=== PATIENT | female | born 1970 | race Caucasian/White ===

== ENCOUNTER → 2016-11-08 | Outpatient (CLI) | payer OTHER ==
--- NOTE | 2016-11-08 15:23 | XR ---
Lumbosacral spine HISTORY: Low back pain, M [age], radiates down right leg 5 views of the lumbosacral spine There is no spondylolysis or spondylolisthesis. Lumbar vertebral bodies show preserved height and bon e mineralization. Spondylosis present at the thoracic lumbar junction. Loss of disc height present at L3-4, L5-S1. IMPRESSION: Degenerative disc disease.
== END | disposition home or self-care (01) ==
LOC: LABWHC1 12:14
PROVIDERS: ATTEND Internal Medicine Critical Care Medicine
DX: M51.37 Other intervertebral disc degeneration, lumbosacral region (principal); R59.0 Localized enlarged lymph nodes
CPT/HCPCS: 36415; 72110; 84439; 84443

== ENCOUNTER → 2016-12-28 | Outpatient (CLI) | payer OTHER ==
--- NOTE | 2016-12-28 18:55 | US ---
EXAMINATION TYPE: US thyroid st tissue head/neck DATE OF EXAM: 12/28/2016 COMPARISON: NONE CLINICAL HISTORY: E04.9 goiter. felt enlarged gland GLAND SIZE: Right Lobe: 3.7 x 1.0 x 1.3 cm Overall Parenchyma: homogenous Left Lobe: 3.6 x 1.0 x 1.3 cm Overall Parenchyma: homogeneous Isthmus Thickness: 0.2 cm NODULES RIGHT: # of nodules measured on right: 1 1. 0.5 X 0.5 x 0.5 cm isoechoic solid nodule at the mid pole with poorly defined margins; . This n odule is wider than tall and shows intranodular vascularity. Prior size: no prior LEFT: # of nodules measured on left: 0 ISTHMUS: # of nodules measured in the isthmus: 0 Bilateral neck scanned, no evidence of lymphadenopathy. ill defined nodule IMPRESSION: 5 mm hypoechoic solid nodule in the right thyroid lobe. Normal thyroid gland size. No dominant thyroi d mass. I have a low suspicion of malignancy.
== END | disposition home or self-care (01) ==
LOC: RADUSWWP 17:03
PROVIDERS: ATTEND Family Medicine
DX: E04.1 Nontoxic single thyroid nodule (principal)
CPT/HCPCS: 76536

== ENCOUNTER → 2016-12-30 | Outpatient (CLI) | payer OTHER ==
[2016-12-30 09:47] LABS: Basophils % (A) 0 %; CH 31.1; CHCM 33.6; Eosinophils # (A) 0.2 k/uL (0-0.7); Eosinophils % (A) 3 %; HCT 37.1 % (34.0-46.0); HDW 2.15; HGB 12.3 gm/dL (11.4-16.0); Luc # (Auto) 0.14; Luc % (Auto) 2; Lymphocytes # (A) 2.2 k/uL (1.0-4.8); Lymphocytes % (A) 28 %; MCH 30.8 pg (25.0-35.0); MCHC 33.1 g/dL (31.0-37.0); Monocytes # (A) 0.2 k/uL (0-1.0); Monocytes % (A) 3 %; Neutrophils # (A) 5.1 k/uL (1.3-7.7); Neutrophils % (A) 64 %; RBC 3.99 m/uL (3.80-5.40); RDW 14.4 % (11.5-15.5); WBC 7.9 k/uL (3.8-10.6); WBC (Perox) 8.22
[2016-12-30 10:16] LABS: ALT 21 U/L (9-52); AST 21 U/L (14-36); Alkaline Phosphatase 65 U/L (38-126); Anion Gap 10 mmol/L; Blood Urea Nitrogen 13 mg/dL (7-17); Calcium 9.5 mg/dL (8.4-10.2); Carbon Dioxide 25 mmol/L (22-30); Chloride 105 mmol/L (98-107); Cholesterol 165 mg/dL (<200); Glucose 121 mg/dL (74-99); HDL Cholesterol 71 mg/dL (40-60); Non-African American GFR(MDRD) >60 (>60 ml/min/1.73 sqM); Potassium 4.4 mmol/L (3.5-5.1); Sodium 140 mmol/L (137-145); Total Bilirubin 0.5 mg/dL (0.2-1.3); Total Protein 6.8 g/dL (6.3-8.2)
== END | disposition home or self-care (01) ==
LOC: LABWHC1 09:08
PROVIDERS: ATTEND Family Medicine
DX: Z00.01 Encounter for general adult medical examination with abnormal findings (principal); J45.30 Mild persistent asthma, uncomplicated
CPT/HCPCS: 36415; 80053; 80061; 84443; 85025

== ENCOUNTER 2017-03-06 09:50 | Emergency (ER) | payer OTHER ==
[2017-03-06] MEDS ORDERED: TOPICAL SKIN ADHESIVE 1 EACH AMP TOPICAL ONE (11:40)
[2017-03-06] MEDS ORDERED: DIPH,PERTUS(ACELL)TETVAC-LF 0.5 ML VIAL IM ONE (11:42)
--- NOTE | 2017-03-06 11:43 | ED ---
Wound/Laceration HPI - General Chief Complaint: Wound/Laceration Stated Complaint: rt thumb lac Time Seen by Provider: 03/06/17 11:37 Source: patient Mode of arrival: ambulatory Limitations: no limitations - History of Present Illness Initial Comments: Patient presents with laceration to the left thumb. She has neurovascular intact. She has no weakness. She has no loss of function. She has no lightheadedness or dizziness. - Related Data Home Medications Medication Instructions Recorded Confirmed Budesonide-Formot 160-4.5 Mcg 2 puff INHALATION RT-BID 07/18/14 02/25/17 [Symbicort 160-4.5 Mcg Inhaler] Albuterol Inhaler [Ventolin Hfa 1 - 2 puff INHALATION RT-Q6H PRN 02/25/17 Inhaler] Albuterol Nebulized [Ventolin 2.5 mg INHALATION RT-Q4H PRN 02/25/17 02/25/17 Nebulized] Allergies Allergy/AdvReac Type Severity Reaction Status Date / Time cat dander Allergy Itching Verified 03/06/17 10:25 dog dander Allergy Itching Verified 03/06/17 10:25 DUST Allergy Itching Uncoded 03/06/17 10:25 Review of Systems ROS Statement: Those systems with pertinent positive or pertinent negative responses have been documented in the HPI. ROS Other: All systems not noted in ROS Statement are negative. Past Medical History Past Medical History: Asthma History of Any Multi-Drug Resistant Organisms: None Reported Past Surgical History: Tubal Ligation Additional Past Surgical History / Comment(s): hemerrhoidectomy Past Anesthesia/Blood Transfusion Reactions: No Reported Reaction Past Psychological History: No Psychological Hx Reported Smoking Status: Never smoker Past Alcohol Use History: None Reported Past Drug Use History: None Reported - Past Family History Mother Family Medical History: Diabetes Mellitus (Mother is 73-year-old has history of diabetes and chronic tobacco use and dependence.) Father Family Medical History: Cancer (Father at age of 85 from COPD hypertension and prostate cancer along with acute renal failure), COPD, Hypertension Additional Family Medical History / Comment(s): prostate CA Brother(s) Family Medical History: Coronary Artery Disease (CAD) (3 brothers one of them at age 46 from coronary artery disease) General Exam Limitations: no limitations General appearance: alert, in no apparent distress Back exam: Present: normal inspection Neurological exam: Present: alert, oriented X3, CN II-XII intact Psychiatric exam: Present: normal affect Skin exam: Present: warm, other (Laceration) Course Vital Signs 03/06/17 10:23 Temperature 97.8 F Pulse Rate 90 Respiratory 16 Rate Blood Pressure 142/69 O2 Sat by Pulse 97 Oximetry Medical Decision Making - Medical Decision Making Patient presents with a laceration. It is 1 cm. I repaired with Dermabond. She is neurovascular intact. She is stable for discharge. Disposition Clinical Impression: Laceration Disposition: HOME SELF-CARE Condition: Good Instructions: Laceration (ED) Referrals: Leon Barker MD [Primary Care Provider] - 1-2 days Time of Disposition: 11:42
[2017-03-06 12:38] VITALS: BP 135/74; PULSE 78; RESP 18; TEMP 97
== END 2017-03-06 12:32 | disposition home or self-care (01) ==
LOC: EC 09:50
DX: S61.012A Laceration without foreign body of left thumb without damage to nail, initial encounter (principal); J45.909 Unspecified asthma, uncomplicated; Z91.09 Other allergy status, other than to drugs and biological substances; Z23 Encounter for immunization; Z91.048 Other nonmedicinal substance allergy status; Z79.51 Long term (current) use of inhaled steroids; W26.8XXA Contact with other sharp object(s), not elsewhere classified, initial encounter; Y93.89 Activity, other specified
CPT/HCPCS: 12001; 90471; 90715; 99282

== ENCOUNTER → 2017-05-29 | Outpatient (CLI) | payer OTHER ==
--- NOTE | 2017-05-30 14:12 | MM ---
Reason for exam: screening (asymptomatic). Last mammogram was performed 1 year and 1 month ago. History: Patient is nulliparous. Physical Findings: A clinical breast exam by your physician is recommended on an annual basis and results should be correlated with mammographic findings. MG Screening Mammo w CAD Bilateral CC and MLO view(s) were taken. Prior study comparison: April 21, 2016, bilateral MG screening mammo w CAD. April 13, 2015, bilateral MG screening mammo w CAD. The breast tissue is heterogeneously dense. This may lower the sensitivity of mammography. No suspicious abnormality. No significant changes when compared with prior studies. ASSESSMENT: Negative, BI-RAD 1 RECOMMENDATION: Routine screening mammogram of both breasts in 1 year.
== END | disposition home or self-care (01) ==
LOC: RADMAMWWP 10:40
PROVIDERS: ATTEND Obstetrics & Gynecology
DX: Z12.31 Encounter for screening mammogram for malignant neoplasm of breast (principal)
CPT/HCPCS: 77067

== ENCOUNTER → 2017-12-23 | Outpatient (CLI) | payer OTHER ==
[2017-12-23 08:27] LABS: Basophils # (A) 0.1 k/uL (0-0.2); Basophils % (A) 1 %; Eosinophils # (A) 0.2 k/uL (0-0.7); Eosinophils % (A) 2 %; HCT 36.7 % (34.0-46.0); HGB 11.8 gm/dL (11.4-16.0); Lymphocytes # (A) 2.4 k/uL (1.0-4.8); Lymphocytes % (A) 27 %; MCH 29.5 pg (25.0-35.0); MCHC 32.1 g/dL (31.0-37.0); MCV 91.9 fL (80.0-100.0); Mean Platelet Volume 7.1; Monocytes # (A) 0.5 k/uL (0-1.0); Monocytes % (A) 5 %; Neutrophils # (A) 5.6 k/uL (1.3-7.7); Neutrophils % (A) 63 %; Platelet Count 320 k/uL (150-450); RDW 13.2 % (11.5-15.5); WBC 8.8 k/uL (3.8-10.6)
[2017-12-23 08:49] LABS: ALT 26 U/L (9-52); AST 37 U/L (14-36); Albumin 4.2 g/dL (3.5-5.0); Alkaline Phosphatase 66 U/L (38-126); Anion Gap 9 mmol/L; Blood Urea Nitrogen 14 mg/dL (7-17); Calcium 9.5 mg/dL (8.4-10.2); Carbon Dioxide 26 mmol/L (22-30); Chloride 103 mmol/L (98-107); Cholesterol 215 mg/dL (<200); Glucose 88 mg/dL (74-99); HDL Cholesterol 97 mg/dL (40-60); LDL Cholesterol,Calculated 108 mg/dL (0-99); Potassium 3.9 mmol/L (3.5-5.1); Sodium 138 mmol/L (137-145); Total Protein 7.2 g/dL (6.3-8.2); Triglycerides 50 mg/dL (<150)
[2017-12-23 09:01] LABS: T4, Free (Free Thyroxine) 0.88 ng/dL (0.78-2.19)
== END | disposition home or self-care (01) ==
LOC: LABWHC1 08:01
PROVIDERS: ATTEND Family Medicine
DX: Z00.00 Encounter for general adult medical examination without abnormal findings (principal); Z79.899 Other long term (current) drug therapy
CPT/HCPCS: 36415; 80053; 80061; 84439; 84443; 85025

== ENCOUNTER 2018-05-05 08:59 | Emergency (ER) | payer OTHER ==
[2018-05-05 09:02] VITALS: BP 134/83
--- NOTE | 2018-05-05 09:27 | ED ---
URI HPI - General Chief Complaint: Upper Respiratory Infection Stated Complaint: cough Time Seen by Provider: 05/05/18 09:11 Source: patient, RN notes reviewed Mode of arrival: ambulatory Limitations: no limitations - History of Present Illness Initial Comments: 47-year-old female presents emergency Department chief complaint cough congestion. Patient states she's had increased cough last few days. Patient states she's felt like she's had a fever but has not recorded temperature. Patient denies any chest pain, headache or dizziness. She does have slight runny nose and nasal congestion no sore throat denies ear pain. Patient has not tried any [id number] cough and cold medications. She does have a history of asthma has been using her inhaler as directed. Patient states her cough is nonproductive other than slight clear phlegm at times. - Related Data Home Medications Medication Instructions Recorded Confirmed Budesonide-Formot 160-4.5 Mcg 2 puff INHALATION RT-BID 07/18/14 03/06/17 [Symbicort 160-4.5 Mcg Inhaler] Albuterol Inhaler [Ventolin Hfa 1 - 2 puff INHALATION RT-Q6H PRN 02/25/17 Inhaler] Albuterol Nebulized [Ventolin 2.5 mg INHALATION RT-Q4H PRN 02/25/17 03/06/17 Nebulized] Previous Rx's Medication Instructions Recorded predniSONE 50 mg PO DAILY #5 tab 05/05/18 Allergies Allergy/AdvReac Type Severity Reaction Status Date / Time cat dander Allergy Itching Verified 05/05/18 09:02 dog dander Allergy Itching Verified 05/05/18 09:02 DUST Allergy Itching Uncoded 05/05/18 09:02 Review of Systems ROS Statement: Those systems with pertinent positive or pertinent negative responses have been documented in the HPI. ROS Other: All systems not noted in ROS Statement are negative. Past Medical History Past Medical History: Asthma History of Any Multi-Drug Resistant Organisms: None Reported Past Surgical History: Tubal Ligation Additional Past Surgical History / Comment(s): hemerrhoidectomy Past Anesthesia/Blood Transfusion Reactions: No Reported Reaction Past Psychological History: No Psychological Hx Reported Smoking Status: Never smoker Past Alcohol Use History: None Reported Past Drug Use History: None Reported - Past Family History Mother Family Medical History: Diabetes Mellitus (Mother is 73-year-old has history of diabetes and chronic tobacco use and dependence.) Father Family Medical History: Cancer (Father at age of 85 from COPD hypertension and prostate cancer along with acute renal failure), COPD, Hypertension Additional Family Medical History / Comment(s): prostate CA Brother(s) Family Medical History: Coronary Artery Disease (CAD) (3 brothers one of them at age 46 from coronary artery disease) General Exam Limitations: no limitations General appearance: alert, in no apparent distress Head exam: Present: atraumatic, normocephalic, normal inspection Eye exam: Present: normal appearance, PERRL, EOMI. Absent: scleral icterus, conjunctival injection, periorbital swelling ENT exam: Present: normal exam, normal oropharynx, mucous membranes moist, TM's normal bilaterally, normal external ear exam Neck exam: Present: normal inspection, full ROM. Absent: tenderness, meningismus, lymphadenopathy Respiratory exam: Present: normal lung sounds bilaterally. Absent: respiratory distress, wheezes, rales, rhonchi, stridor Cardiovascular Exam: Present: regular rate, normal rhythm, normal heart sounds. Absent: systolic murmur, diastolic murmur, rubs, gallop, clicks Neurological exam: Present: alert, oriented X3, CN II-XII intact Skin exam: Present: warm, dry, intact, normal color. Absent: rash Course Vital Signs 05/05/18 09:00 Temperature 97.6 F Pulse Rate 104 H Respiratory 20 Rate Blood Pressure 134/83 O2 Sat by Pulse 99 Oximetry Medical Decision Making - Medical Decision Making 47-year-old female presented for cough congestion. Patient chest x-ray no influenza testing which is negative. Patient has a mild asthma exacerbation with acute bronchitis. Patient we treated with oral steroids and cough suppressant. Return parameters were discussed. Patient is stable for discharge. - Lab Data Lab Results 05/05/18 Range/Units 09:17 Influenza Type A RNA Not Detected (Not Detectd) Influenza Type B (PCR) Not Detected (Not Detectd) Disposition Clinical Impression: Asthmatic bronchitis Disposition: HOME SELF-CARE Condition: Stable Instructions: Upper Respiratory Infection (ED) Additional Instructions: Please return to the Emergency Department if symptoms worsen or any other concerns. Prescriptions: predniSONE 50 mg PO DAILY #5 tab Is patient prescribed a controlled substance at d/c from ED?: No Referrals: Leon Barker MD [Primary Care Provider] - 1-2 days Time of Disposition: 10:18
--- NOTE | 2018-05-05 09:35 | XR ---
EXAMINATION TYPE: XR chest 2V DATE OF EXAM: 05/05/2018 HISTORY: Cough. REFERENCE: Previous study dated 02/15/2015. FINDINGS: The lungs are clear. Pleural space are clear. The heart is not enlarged. IMPRESSION: NORMAL CHEST.
[2018-05-05 10:30] VITALS: PULSE 89; RESP 18; TEMP 98
== END 2018-05-05 10:25 | disposition home or self-care (01) ==
LOC: EC 08:59
DX: J45.901 Unspecified asthma with (acute) exacerbation (principal); Z91.048 Other nonmedicinal substance allergy status; Z79.51 Long term (current) use of inhaled steroids; Z82.5 Family history of asthma and other chronic lower respiratory diseases
CPT/HCPCS: 71046; 87502; 99283

== ENCOUNTER → 2018-06-13 | Outpatient (CLI) | payer OTHER ==
--- NOTE | 2018-06-15 09:03 | MM ---
Reason for exam: screening (asymptomatic). Last mammogram was performed 1 year ago. History: Patient is nulliparous. Physical Findings: A clinical breast exam by your physician is recommended on an annual basis and results should be correlated with mammographic findings. MG Screening Mammo w CAD Bilateral CC and MLO view(s) were taken. Prior study comparison: May 29, 2017, bilateral MG screening mammo w CAD. April 21, 2016, bilateral MG screening mammo w CAD. The breast tissue is heterogeneously dense. This may lower the sensitivity of mammography. No suspicious abnormality. No significant changes when compared with prior studies. ASSESSMENT: Negative, BI-RAD 1 RECOMMENDATION: Routine screening mammogram of both breasts in 1 year.
== END ==
LOC: RADMAMWWP 12:20
PROVIDERS: ATTEND Obstetrics & Gynecology
DX: Z12.31 Encounter for screening mammogram for malignant neoplasm of breast (principal)
CPT/HCPCS: 77067

== ENCOUNTER → 2018-07-20 | Outpatient (CLI) | payer OTHER ==
--- NOTE | 2018-07-20 12:47 | XR ---
Left foot HISTORY: Left plantar pain near first digit for 3 months 3 views of the left foot Bone mineralization, joint spaces and alignment are relatively maintained. No fracture or dislocation . Mild degenerative changes at the first metatarsophalangeal joint. IMPRESSION: No acute abnormality. Mild osteoarthritis first digit.
== END | disposition home or self-care (01) ==
LOC: RADXRMAIN 09:56
PROVIDERS: ATTEND Family Medicine
DX: M19.072 Primary osteoarthritis, left ankle and foot (principal)

== ENCOUNTER → 2019-02-01 | Outpatient (CLI) | payer OTHER ==
[2019-02-01 09:07] LABS: Basophils % (A) 0 %; Eosinophils # (A) 0.2 k/uL (0-0.7); Eosinophils % (A) 2 %; HCT 35.4 % (34.0-46.0); HGB 11.9 gm/dL (11.4-16.0); Lymphocytes # (A) 2.2 k/uL (1.0-4.8); Lymphocytes % (A) 26 %; MCHC 33.6 g/dL (31.0-37.0); Mean Platelet Volume 6.5; Monocytes # (A) 0.3 k/uL (0-1.0); Monocytes % (A) 4 %; Neutrophils # (A) 5.7 k/uL (1.3-7.7); Neutrophils % (A) 66 %; Platelet Count 293 k/uL (150-450); RBC 3.85 m/uL (3.80-5.40); WBC 8.7 k/uL (3.8-10.6)
--- NOTE | 2019-02-01 09:15 | XR ---
EXAMINATION TYPE: XR foot complete LT DATE OF EXAM: 02/01/2019 COMPARISON: NONE HISTORY: Pain TECHNIQUE: Three views are submitted. FINDINGS: The osseous structures are intact. There is no acute fracture or dislocation. There is hypertrophi c change and narrowing the first MTP joint. No erosive change.. IMPRESSION: 1. No acute fracture or dislocation. If symptoms persist, follow-up exam in 7 to 10 days could be ob tained. 2. First digit MTP joint arthropathy.
[2019-02-01 17:48] LABS: African American GFR (CKD) 118.7 (60.0-200.0); Albumin 4.4 g/dL (3.80-4.90); Albumin/Globulin Ratio 2.2 (1.60-3.17); Anion Gap 9.5 mmol/L (4.00-12.00); BUN/Creat Ratio 25.71 Ratio (12.00-20.00); Calcium 9.6 mg/dL (8.7-10.3); Carbon Dioxide 27.5 mmol/L (21.6-31.8); Chol/HDL Ratio 2.25; LDL Cholesterol,Calculated 91.4 mg/dL (0.0-131.0); Potassium 3.9 mmol/L (3.5-5.5); Total Bilirubin 0.7 mg/dL (0.2-1.2); Total Protein 6.4 g/dL (6.2-8.2); Uric Acid 3.9 mg/dL (2.9-7.7); VLDL Calculation 13.6 mg/dL (5.00-40.00)
== END | disposition home or self-care (01) ==
LOC: LABWHC1 08:43
PROVIDERS: ATTEND Family Medicine
DX: M12.872 Other specific arthropathies, not elsewhere classified, left ankle and foot (principal); Z00.01 Encounter for general adult medical examination with abnormal findings; E78.5 Hyperlipidemia, unspecified; N32.81 Overactive bladder; M26.629 Arthralgia of temporomandibular joint, unspecified side; Z79.899 Other long term (current) drug therapy
CPT/HCPCS: 36415; 80053; 80061; 84443; 84550; 85025

== ENCOUNTER 2019-05-31 15:26 | Emergency (ER) | payer OTHER ==
[2019-05-31 15:37] VITALS: TEMP 98.4
--- NOTE | 2019-05-31 16:45 | XR ---
EXAMINATION TYPE: XR sacrum coccyx DATE OF EXAM: 05/31/2019 COMPARISON: Lumbar spine 11/08/2016 HISTORY: Tailbone pain TECHNIQUE: 3 views FINDINGS: Segments have normal alignment. I see no fracture nor dislocation. Lower lumbar spine is in tact. The sacroiliac joints appear normal. IMPRESSION: Normal sacrum and coccyx exam.
--- NOTE | 2019-05-31 16:55 | ED ---
Back Pain HPI - General Chief Complaint: Back Pain/Injury Stated Complaint: Tailbone pain Time Seen by Provider: 05/31/19 15:50 Source: patient Limitations: no limitations - History of Present Illness Initial Comments: Patient is a 48-year-old female presenting to emergency Department with a chief complaint of coccygeal pain. She states the pain started several hours ago after she woke up from her sleep. Patient reports pain in the coccygeal region. She reports the pain is exacerbated whenever she is bending forward. Patient denies any trauma to the region. She states that she has frequent fungal infections in the coccygeal region for which she uses antifungal cream for. States does not feel like an infection. States the pain is exacerbated and a sitting position as well. Patient denies any rectal bleeding. Denies any rectal pain. States she had multiple bowel movements today without any issues. No urinary symptoms. No abdominal pain or back pain. - Related Data Home Medications Medication Instructions Recorded Confirmed Budesonide-Formot 160-4.5 Mcg 2 puff INHALATION RT-BID 07/18/14 03/06/17 [Symbicort 160-4.5 Mcg Inhaler] Albuterol Inhaler [Ventolin Hfa 1 - 2 puff INHALATION RT-Q6H PRN 02/25/17 03/06/17 Inhaler] Albuterol Nebulized [Ventolin 2.5 mg INHALATION RT-Q4H PRN 02/25/17 03/06/17 Nebulized] Previous Rx's Medication Instructions Recorded predniSONE 50 mg PO DAILY #5 tab 05/05/18 Allergies Allergy/AdvReac Type Severity Reaction Status Date / Time cat dander Allergy Itching Verified 05/31/19 15:37 dog dander Allergy Itching Verified 05/31/19 15:37 DUST Allergy Itching Uncoded 05/31/19 15:37 Review of Systems ROS Statement: Those systems with pertinent positive or pertinent negative responses have been documented in the HPI. ROS Other: All systems not noted in ROS Statement are negative. Past Medical History Past Medical History: Asthma History of Any Multi-Drug Resistant Organisms: None Reported Past Surgical History: Tubal Ligation Additional Past Surgical History / Comment(s): hemerrhoidectomy Past Anesthesia/Blood Transfusion Reactions: No Reported Reaction Past Psychological History: No Psychological Hx Reported Smoking Status: Never smoker Past Alcohol Use History: None Reported Past Drug Use History: None Reported - Past Family History Mother Family Medical History: Diabetes Mellitus (Mother is 73-year-old has history of diabetes and chronic tobacco use and dependence.) Father Family Medical History: Cancer (Father at age of 85 from COPD hypertension and prostate cancer along with acute renal failure), COPD, Hypertension Additional Family Medical History / Comment(s): prostate CA Brother(s) Family Medical History: Coronary Artery Disease (CAD) (3 brothers one of them at age 46 from coronary artery disease) General Exam Limitations: no limitations General appearance: alert, in no apparent distress Head exam: Present: atraumatic, normocephalic, normal inspection Eye exam: Present: normal appearance, PERRL Pupils: Present: normal accommodation ENT exam: Present: normal exam, mucous membranes moist Neck exam: Present: normal inspection, full ROM Respiratory exam: Present: normal lung sounds bilaterally Cardiovascular Exam: Present: regular rate, normal rhythm, normal heart sounds Extremities exam: Present: normal inspection, full ROM Back exam: Present: full ROM, tenderness (Mild tenderness with palpationProcedure region.). Absent: normal inspection (Very small pilonidal cyst) Neurological exam: Present: alert, oriented X3 Psychiatric exam: Present: normal affect, normal mood Skin exam: Present: warm, dry, intact, normal color Course Vital Signs 05/31/19 15:34 Temperature 98.4 F Pulse Rate 78 Respiratory 20 Rate Blood Pressure 137/89 O2 Sat by Pulse 96 Oximetry Medical Decision Making - Medical Decision Making Patient is a 48-year-old female presenting to emergency Department with chief complaint of tailbone pain. On exam patient does have discomfort in the coccygeal region. There is no surrounding erythema and there is a small opening in the skin which patient states that has been there for several years. There is some mild tenderness with palpation. No signs of an obvious abscess. X-ray of the coccygeal region is unremarkable. I suspect the patient is potentially developing a fungal infection in the region. Patient ready has antifungal cream at home. She reports urinating and had multiple bowel movements today without any issues. Denies any rectal bleeding. Patient advised to follow with primary care. Return parameters discussed. All questions answered. Case discussed with physician. Disposition Clinical Impression: Coccygeal pain, acute Disposition: HOME SELF-CARE Condition: Stable Instructions (If sedation given, give patient instructions): Coccyx Injury (ED) Additional Instructions: Follow-up with primary care. Apply antifungal cream in the region. Return to emergency department if symptoms worsen. Is patient prescribed a controlled substance at d/c from ED?: No Referrals: Leon Barker MD [Primary Care Provider] - 1-2 days Time of Disposition: 17:20
[2019-05-31 17:48] VITALS: BP 132/76; PULSE 76; RESP 16
== END 2019-05-31 17:46 | disposition home or self-care (01) ==
LOC: EC 15:26
DX: M53.3 Sacrococcygeal disorders, not elsewhere classified (principal); J45.909 Unspecified asthma, uncomplicated; Z79.51 Long term (current) use of inhaled steroids; Z91.09 Other allergy status, other than to drugs and biological substances
CPT/HCPCS: 72220; 99283

== ENCOUNTER → 2019-07-10 | Outpatient (CLI) | payer OTHER ==
--- NOTE | 2019-07-11 10:10 | MM ---
Reason for exam: screening (asymptomatic). Last mammogram was performed 1 year and 1 month ago. History: Patient is nulliparous. Physical Findings: A clinical breast exam by your physician is recommended on an annual basis and results should be correlated with mammographic findings. MG Screening Mammo w CAD Bilateral CC and MLO view(s) were taken. Prior study comparison: June 13, 2018, bilateral MG screening mammo w CAD. May 29, 2017, bilateral MG screening mammo w CAD. The breast tissue is heterogeneously dense. This may lower the sensitivity of mammography. There is no discrete abnormality. Benign bilateral axillary lymph nodes. ASSESSMENT: Negative, BI-RAD 1 RECOMMENDATION: Routine screening mammogram of both breasts in 1 year.
== END | disposition home or self-care (01) ==
LOC: RADMAMWWP 15:19
PROVIDERS: ATTEND Obstetrics & Gynecology
DX: Z12.31 Encounter for screening mammogram for malignant neoplasm of breast (principal)
CPT/HCPCS: 77067

== ENCOUNTER → 2020-10-20 | Outpatient (CLI) | payer OTHER ==
--- NOTE | 2020-10-21 13:55 | MM ---
Reason for exam: screening (asymptomatic). Last mammogram was performed 1 year and 3 months ago. History: Patient is nulliparous. Physical Findings: A clinical breast exam by your physician is recommended on an annual basis and results should be correlated with mammographic findings. MG Screening Mammo w CAD Bilateral CC and MLO view(s) were taken. Prior study comparison: July 10, 2019, bilateral MG screening mammo w CAD. June 13, 2018, bilateral MG screening mammo w CAD. The breast tissue is heterogeneously dense. This may lower the sensitivity of mammography. No significant changes when compared with prior studies. ASSESSMENT: Benign, BI-RAD 2 RECOMMENDATION: Routine screening mammogram of both breasts in 1 year.
== END | disposition home or self-care (01) ==
LOC: RADMAMWWP 14:29
PROVIDERS: ATTEND Obstetrics & Gynecology
DX: Z12.31 Encounter for screening mammogram for malignant neoplasm of breast (principal)
CPT/HCPCS: 77067

== ENCOUNTER 2020-12-19 07:48 | Emergency (ER) | payer OTHER ==
[2020-12-19] MEDS ORDERED: KETOROLAC 15 MG/ML 1 ML VIAL IM STA (08:04)
--- NOTE | 2020-12-19 08:13 | ED ---
Lower Extremity Injury HPI - General Chief Complaint: Extremity Injury, Lower Stated Complaint: knee pain Time Seen by Provider: 12/19/20 07:58 Source: patient Mode of arrival: ambulatory Limitations: physical limitation - History of Present Illness Initial Comments: 50 year-old male patient presents to the emergency department for evaluation of right knee pain. Patient states she developed pain without injury to the right knee about 1.5 weeks ago. States that pain relieves with rest and worsens with ambulation. She reports a "grinding" sensation like her bone is rubbing together. States when she fully extends the leg she gets a stabbing pain beneath her knee cap. She states she has some mild swelling to the knee. Denies radiating pain down the leg. Denies foot or leg swelling. Denies fever or chills. Denies history of knee issues. - Related Data Home Medications Medication Instructions Recorded Confirmed Budesonide-Formot 160-4.5 Mcg 2 puff INHALATION RT-BID 07/18/14 03/06/17 [Symbicort 160-4.5 Mcg Inhaler] Albuterol Inhaler (Mhu) [Ventolin 1 - 2 puff INHALATION RT-Q6H PRN 02/25/17 03/06/17 Hfa Inhaler (Mhu)] Albuterol Nebulized [Ventolin 2.5 mg INHALATION RT-Q4H PRN 02/25/17 03/06/17 Nebulized] Previous Rx's Medication Instructions Recorded predniSONE 50 mg PO DAILY #5 tab 05/05/18 Naproxen [EC-Naprosyn] 500 mg PO BID PRN #30 tablet. 12/19/20 Allergies Allergy/AdvReac Type Severity Reaction Status Date / Time cat dander Allergy Itching Verified 12/19/20 07:54 dog dander Allergy Itching Verified 12/19/20 07:54 DUST Allergy Itching Uncoded 12/19/20 07:54 Review of Systems ROS Statement: Those systems with pertinent positive or pertinent negative responses have been documented in the HPI. ROS Other: All systems not noted in ROS Statement are negative. Past Medical History Past Medical History: Asthma History of Any Multi-Drug Resistant Organisms: None Reported Past Surgical History: Tubal Ligation Additional Past Surgical History / Comment(s): hemerrhoidectomy Past Anesthesia/Blood Transfusion Reactions: No Reported Reaction Past Psychological History: No Psychological Hx Reported Smoking Status: Never smoker Past Alcohol Use History: None Reported Past Drug Use History: None Reported - Past Family History Mother Family Medical History: Diabetes Mellitus (Mother is 73-year-old has history of diabetes and chronic tobacco use and dependence.) Father Family Medical History: Cancer (Father at age of 85 from COPD hypertension and prostate cancer along with acute renal failure), COPD, Hypertension Additional Family Medical History / Comment(s): prostate CA Brother(s) Family Medical History: Coronary Artery Disease (CAD) (3 brothers one of them at age 46 from coronary artery disease) General Exam Limitations: physical limitation General appearance: alert, in no apparent distress, other (Physical well- developed, well-nourished adult female patient in no acute distress. Vital signs upon presentation temperature 97.6F, pulse 108, respirations 18, blood pressure 148/87, pulse ox 100% on room air.) Respiratory exam: Present: normal lung sounds bilaterally. Absent: respiratory distress, wheezes, rales, rhonchi, stridor Cardiovascular Exam: Present: regular rate, normal rhythm, normal heart sounds. Absent: systolic murmur, diastolic murmur, rubs, gallop, clicks Extremities exam: Present: full ROM, normal capillary refill, other (Mild swelling surrounding the right knee. Skin is otherwise pink, warm, dry. Cap refill less than 3 seconds. No pain with this or varus maneuvers. Negative drawer test. Pedal and posttibial pulses are 2+.). Absent: tenderness, pedal edema, joint swelling, calf tenderness Neurological exam: Present: alert, oriented X3, CN II-XII intact Psychiatric exam: Present: normal affect, normal mood Skin exam: Present: warm, dry, intact, normal color. Absent: rash Course Vital Signs 12/19/20 12/19/20 07:50 09:19 Temperature 97.6 F 98 F Pulse Rate 108 H 70 Respiratory 18 16 Rate Blood Pressure 148/87 128/78 O2 Sat by Pulse 100 98 Oximetry Medical Decision Making - Medical Decision Making 50-year-old female patient presents to the emergency department today for evaluation of right knee pain that started about a week and a half ago. Phys ical examination did reveal mild soft tissue swelling. Full range of motion is intact. Neurovascular status is intact. X-ray was obtained and was negative. Patient symptoms are consistent with possible meniscus abnormality. She will be discharged to follow up with the primary care physician and orthopedics for further evaluation as soon as possible. Return parameters were discussed in detail. She verbalizes understanding and agrees with this plan. Case discussed with my attending Dr. Bundy - Radiology Data Radiology results: report reviewed, image reviewed 3 views of the right knee are obtained. Report was Reviewed in its entirety. Impression by Dr. Delarosa shows no acute fracture dislocation the right knee. Disposition Clinical Impression: Right knee pain Disposition: HOME SELF-CARE Condition: Good Instructions (If sedation given, give patient instructions): Knee Pain (ED) Additional Instructions: Rest and ice the knee. Take tylenol and motrin for pain control. Follow up with orthopedics for further evaluation if symptoms are not improved. Return for any new, worsening, or concerning symptoms. Prescriptions: Naproxen [EC-Naprosyn] 500 mg PO BID PRN #30 tablet.dr YOST Reason: Pain Is patient prescribed a controlled substance at d/c from ED?: No Referrals: Leon Barker MD [Primary Care Provider] - 1-2 days Martin Velasquez MD [STAFF PHYSICIAN] - 1-2 days Time of Disposition: 09:09
--- NOTE | 2020-12-19 09:06 | XR ---
EXAMINATION TYPE: XR knee complete RT DATE OF EXAM: 12/19/2020 CLINICAL HISTORY: Pain TECHNIQUE: Three views of the right knee are obtained. COMPARISON: None. FINDINGS: There is no acute fracture/dislocation evident in right knee. The tri-compartment joint s paces appear within normal limits. The overlying soft tissue appears unremarkable. IMPRESSION: There is no acute fracture or dislocation in the right knee.
[2020-12-19 09:19] VITALS: BP 128/78; PULSE 70; RESP 16; TEMP 98
== END 2020-12-19 09:19 | disposition home or self-care (01) ==
LOC: EC 07:48
DX: M25.561 Pain in right knee (principal); Z91.09 Other allergy status, other than to drugs and biological substances; Z91.048 Other nonmedicinal substance allergy status
CPT/HCPCS: 73562; 99283; 96372; J1885

== ENCOUNTER → 2021-03-26 | Outpatient (CLI) | payer OTHER ==
--- NOTE | 2021-03-26 09:42 | MR ---
EXAMINATION TYPE: MR knee RT wo con DATE OF EXAM: 03/26/2021 COMPARISON: Plain film 12/19/2020 HISTORY: Right knee pain. TECHNIQUE: Multiplanar, multisequence imaging of the right knee is performed without IV contrast. FINDINGS: MEDIAL MENISCUS: Anterior and posterior horns are intact without tear. LATERAL MENISCUS: Anterior and posterior horns are intact without tear. CRUCIATE LIGAMENTS: The anterior and posterior cruciate ligaments are intact and unremarkable. COLLATERAL LIGAMENTS: The medial collateral ligament and lateral collateral ligament complex are inta ct and unremarkable. EXTENSOR MECHANISM: Visualized quadriceps and patellar tendons are intact. EFFUSION: No significant suprapatellar joint effusion. POPLITEAL CYST: Small semimembranosus gastrocnemius cyst is present measuring approximately 10 mm x 10 mm x 25 mm. TRICOMPARTMENT SPACES: Joint space loss is present in the medial compartment, patellofemoral joint CARTILAGE: Grade 2 to grade III chondromalacia in the medial compartment, posterior patella BONE MARROW SIGNAL: Small geode or interosseous ganglion at the level of the tibial spines measuring 4 to 5 mm, bone marrow signal otherwise maintained OTHER: Minimal subcutaneous edema change present along the prepatellar region, along anterior aspect of the patellar tendon IMPRESSION: Osteoarthritis, Grey's cyst
== END | disposition home or self-care (01) ==
LOC: RADMRIMAIN 08:38
PROVIDERS: ATTEND Orthopaedic Surgery
DX: M17.11 Unilateral primary osteoarthritis, right knee (principal); M71.21 Synovial cyst of popliteal space [Baker], right knee

== ENCOUNTER 2022-03-12 15:10 | Emergency (ER) | payer OTHER ==
[2022-03-12 15:16] VITALS: TEMP 98.2
[2022-03-12] MEDS ORDERED: KETOROLAC 15 MG/ML 1 ML VIAL IM STA ×2 (15:31→15:37)
--- NOTE | 2022-03-12 15:38 | XR ---
EXAMINATION TYPE: XR shoulder complete RT DATE OF EXAM: 03/12/2022 COMPARISON: NONE HISTORY: Pain TECHNIQUE: 3 views FINDINGS: There is no sign of fracture nor dislocation. Joint spaces are normal. No pathologic calcif ication. IMPRESSION: Negative right shoulder exam.
--- NOTE | 2022-03-12 16:02 | ED ---
Upper Extremity HPI - General Chief Complaint: Extremity Injury, Upper Stated Complaint: Fall,Shoulder injury Time Seen by Provider: 03/12/22 15:20 Source: patient, RN notes reviewed Mode of arrival: ambulatory Limitations: no limitations - History of Present Illness Initial Comments: Patient is a 51-year-old female presenting to the emergency room with complaints of right shoulder and upper arm pain after attempting to climb through the window and fell onto her upper arm shoulder region she came to the window. She denies any trauma to any other joints. She denies any concerns for lacerations or class fragments. She reports full range of motion though range of motion is painful. The primary pain location is to upper lateral humerus area that is worse with movement. She has not taken any medications to help with her symptoms. She denies any other complaints or concerns including any chest pain, shortness of breath, abdominal pain, nausea, vomiting, headache, dizziness, weakness, fevers or chills. She looked past medical history significant for asthma without any recent exacerbations. - Related Data Home Medications Medication Instructions Recorded Confirmed Budesonide-Formot 160-4.5 Mcg 2 puff INHALATION RT-BID 07/18/14 03/06/17 [Symbicort 160-4.5 Mcg Inhaler] Albuterol Inhaler [Ventolin Hfa 1 - 2 puff INHALATION RT-Q6H PRN 02/25/17 03/06/17 Inhaler] Albuterol Nebulized [Ventolin 2.5 mg INHALATION RT-Q4H PRN 02/25/17 03/06/17 Nebulized] Previous Rx's Medication Instructions Recorded predniSONE 50 mg PO DAILY #5 tab 05/05/18 Naproxen [EC-Naprosyn] 500 mg PO BID PRN #30 tablet. 12/19/20 Allergies Allergy/AdvReac Type Severity Reaction Status Date / Time cat dander Allergy Itching Verified 03/12/22 15:16 dog dander Allergy Itching Verified 03/12/22 15:16 DUST Allergy Itching Uncoded 03/12/22 15:16 Review of Systems ROS Statement: Those systems with pertinent positive or pertinent negative responses have been documented in the HPI. ROS Other: All systems not noted in ROS Statement are negative. Past Medical History Past Medical History: Asthma History of Any Multi-Drug Resistant Organisms: None Reported Past Surgical History: Tubal Ligation Additional Past Surgical History / Comment(s): hemerrhoidectomy Past Anesthesia/Blood Transfusion Reactions: No Reported Reaction Past Psychological History: No Psychological Hx Reported Smoking Status: Never smoker Past Alcohol Use History: None Reported Past Drug Use History: None Reported - Past Family History Mother Family Medical History: Diabetes Mellitus (Mother is 73-year-old has history of diabetes and chronic tobacco use and dependence.) Father Family Medical History: Cancer (Father at age of 85 from COPD hypertension and prostate cancer along with acute renal failure), COPD, Hypertension Additional Family Medical History / Comment(s): prostate CA Brother(s) Family Medical History: Coronary Artery Disease (CAD) (3 brothers one of them at age 46 from coronary artery disease) General Exam General appearance: alert, in no apparent distress Head exam: Present: atraumatic, normocephalic, normal inspection Eye exam: Present: normal appearance, PERRL, EOMI. Absent: scleral icterus, conjunctival injection, periorbital swelling ENT exam: Present: normal exam, mucous membranes moist Neck exam: Present: normal inspection, full ROM Respiratory exam: Absent: respiratory distress, accessory muscle use Cardiovascular Exam: Present: regular rate GI/Abdominal exam: Absent: distended Right Shoulder Exam: Present: full ROM (Pain with ROM). Absent: tenderness, swelling, laceration, ecchymosis, deformity, crepitus, dislocation Upper Arm exam: Present: full ROM, tenderness. Absent: swelling, abrasion, laceration, ecchymosis, deformity Vascular: Absent: vascular compromise Back exam: Present: normal inspection Neurological exam: Present: alert, oriented X3, CN II-XII intact Psychiatric exam: Present: normal affect, normal mood Skin exam: Present: warm, dry, intact, normal color. Absent: rash Course Vital Signs 03/12/22 03/12/22 15:14 16:15 Temperature 98.2 F 98.2 F Pulse Rate 74 73 Respiratory 20 18 Rate Blood Pressure 130/70 133/83 O2 Sat by Pulse 99 98 Oximetry Medical Decision Making - Medical Decision Making 51-year-old presenting with right shoulder and upper arm pain after falling onto her arm earlier this afternoon. No laceration or injuries to other extremities. Will obtain x-ray of the right shoulder and humerus region. No indication for any laboratory studies. Will give Toradol for pain and monitor response. X-ray the right shoulder which reviewed by myself showing normal joint space without any fracture or dislocation. Pain slightly improved with IM Toradol. No indication for further imaging or testing. Will discharge patient home in stable condition with conservative therapy of range of motion as tolerated and continue use of analgesics along with ice and heat application as appropriate. Advise follow-up with primary care provider. Case discussed with Dr. Braswell. - Radiology Data Radiology results: report reviewed, image reviewed X-ray of the right shoulder complete impression by radiologist negative right shoulder exam. Disposition Clinical Impression: Right shoulder pain Disposition: HOME SELF-CARE Condition: Stable Instructions (If sedation given, give patient instructions): Shoulder Pain (ED) Additional Instructions: Please utilize [id number] ibuprofen or Tylenol as needed for pain. Apply ice to the affected joint as needed for the next 48 hours and then may utilize ice or heat. Do not apply for greater than 20 minutes. Gentle range of motion as tolerated encouraged. Please follow-up with your primary care provider. Please return to the Emergency Department if symptoms worsen or any other concerns. Is patient prescribed a controlled substance at d/c from ED?: No Referrals: Leon Barker MD [Primary Care Provider] - 1-2 days Time of Disposition: 16:00
[2022-03-12 16:17] VITALS: BP 133/83; PULSE 73; RESP 18
== END 2022-03-12 16:15 | disposition home or self-care (01) ==
LOC: EC 15:10
DX: S49.91XA Unspecified injury of right shoulder and upper arm, initial encounter (principal); J45.909 Unspecified asthma, uncomplicated; Z91.048 Other nonmedicinal substance allergy status; W19.XXXA Unspecified fall, initial encounter
CPT/HCPCS: 73030; 99283; 96372 ×2; J1885

== ENCOUNTER 2022-04-14 13:35 | Emergency (ER) | payer OTHER ==
[2022-04-14 14:18] VITALS: RESP 18
--- NOTE | 2022-04-14 14:39 | XR ---
EXAM TYPE: LUMBAR SPINE X RAY SERIES COMPARISON: 11/08/2016 HISTORY: Pain TECHNIQUE: 3 views are submitted. FINDINGS: Alignment is anatomic. The pedicles are intact. The transverse processes are intact. There is no s pondylolisthesis. 2 right-sided renal calcifications largest measuring 6 mm. Mild hypertrophic spurr ing anteriorly at most levels. Facet arthropathy L4-5 and L5-S1. IMPRESSION: 1. Multilevel mild hypertrophic spurring with facet arthropathy L4-5 and L5-S1. 2. There are 2 right-sided renal calculi the largest measuring 6 mm..
[2022-04-14] MEDS ORDERED: ORPHENADRINE 30 MG/ML 2 ML VIAL IM STA (16:39)
[2022-04-14] MEDS ORDERED: KETOROLAC 15 MG/ML 1 ML VIAL IM STA (16:39)
[2022-04-14 17:48] VITALS: BP 149/93; PULSE 91; TEMP 97.9
--- NOTE | 2022-04-14 17:49 | ED ---
Fall HPI - General Chief Complaint: Fall Stated Complaint: fall Time Seen by Provider: 04/14/22 16:36 Source: patient Mode of arrival: ambulatory - History of Present Illness Initial Comments: Patient is a 51-year-old female presenting with chief complaint of back pain. Patient states that she slipped and fell on ice today around 4:30 AM. She fell down 5 cement steps. She denies any head injury, loss of consciousness, or use of blood thinners. She is complaining mainly of right-sided lower back pain. No loss of bowel or bladder control or saddle paresthesia. No radiation of pain down the legs. No numbness or tingling. No weakness. - Related Data Home Medications Medication Instructions Recorded Confirmed Budesonide-Formot 160-4.5 Mcg 2 puff INHALATION RT-BID 07/18/14 03/06/17 [Symbicort 160-4.5 Mcg Inhaler] Albuterol Inhaler [Ventolin Hfa 1 - 2 puff INHALATION RT-Q6H PRN 02/25/17 03/06/17 Inhaler] Albuterol Nebulized [Ventolin 2.5 mg INHALATION RT-Q4H PRN 02/25/17 03/06/17 Nebulized] Previous Rx's Medication Instructions Recorded predniSONE 50 mg PO DAILY #5 tab 05/05/18 Naproxen [EC-Naprosyn] 500 mg PO BID PRN #30 tablet. 12/19/20 Cyclobenzaprine [Flexeril] 10 mg PO HS PRN #10 tab 04/14/22 Allergies Allergy/AdvReac Type Severity Reaction Status Date / Time cat dander Allergy Itching Verified 04/14/22 14:18 dog dander Allergy Itching Verified 04/14/22 14:18 DUST Allergy Itching Uncoded 04/14/22 14:18 Review of Systems ROS Statement: Those systems with pertinent positive or pertinent negative responses have been documented in the HPI. ROS Other: All systems not noted in ROS Statement are negative. Past Medical History Past Medical History: Asthma History of Any Multi-Drug Resistant Organisms: None Reported Past Surgical History: Tubal Ligation Additional Past Surgical History / Comment(s): hemerrhoidectomy Past Anesthesia/Blood Transfusion Reactions: No Reported Reaction Past Psychological History: No Psychological Hx Reported Smoking Status: Never smoker Past Alcohol Use History: None Reported Past Drug Use History: None Reported - Past Family History Mother Family Medical History: Diabetes Mellitus (Mother is 73-year-old has history of diabetes and chronic tobacco use and dependence.) Father Family Medical History: Cancer (Father at age of 85 from COPD hypertension and prostate cancer along with acute renal failure), COPD, Hypertension Additional Family Medical History / Comment(s): prostate CA Brother(s) Family Medical History: Coronary Artery Disease (CAD) (3 brothers one of them at age 46 from coronary artery disease) General Exam Limitations: no limitations General appearance: alert, in no apparent distress Head exam: Present: atraumatic, normocephalic, normal inspection Eye exam: Present: normal appearance Neck exam: Present: normal inspection Respiratory exam: Present: normal lung sounds bilaterally. Absent: respiratory distress, wheezes, rales, rhonchi, stridor Cardiovascular Exam: Present: regular rate, normal rhythm, normal heart sounds. Absent: systolic murmur, diastolic murmur, rubs, gallop, clicks Back exam: Present: normal inspection, paraspinal tenderness. Absent: full ROM, vertebral tenderness Neurological exam: Present: alert, oriented X3, CN II-XII intact Psychiatric exam: Present: normal affect, normal mood Skin exam: Present: warm, dry, intact, normal color. Absent: rash Course Vital Signs 04/14/22 04/14/22 04/14/22 14:16 15:41 17:48 Temperature 98 F 97.7 F 97.9 F Pulse Rate 101 H 98 91 Respiratory 18 18 18 Rate Blood Pressure 151/75 147/80 149/93 O2 Sat by Pulse 99 99 98 Oximetry Medical Decision Making - Medical Decision Making Patient is a 51-year-old female presenting with chief complaint of right-sided lower back pain after slipping on ice today. On physical examination there is paraspinal muscle tenderness to the right lower side. No alarm symptoms. X-ray shows normal alignment, there is multilevel mild hypertrophic spurring with facet arthropathy at L4 through 5 and L5 through S1. Noted that there are also 2 right-sided renal calculi. Educated patient on the findings, reassessed after pain medication was given, patient reports great improvement in her symptoms. She feels comfortable with discharge home at this time. Prescription is sent for Flexeril, do not take before driving or operating heavy machinery as it may cause drowsiness. Follow-up with PCP. Report back to ER with any new or worsening symptoms. Discussed return parameters and answered all questions. Patient conveyed verbal understanding and agreed to the plan. I discussed this case in detail with my attending Dr. Rosa Disposition Clinical Impression: Back strain Disposition: HOME SELF-CARE Condition: Good Instructions (If sedation given, give patient instructions): Low Back Strain (ED), Lower Back Exercises (ED) Additional Instructions: Follow-up with PCP. Report back to ER with any new or worsening symptoms. Take medication as prescribed. Do not take cyclobenzaprine prior to driving or operating heavy machinery as it may cause drowsiness. Alternate Motrin and Tylenol as needed for pain control. Prescriptions: Cyclobenzaprine [Flexeril] 10 mg PO HS PRN #10 tab PRN Reason: Spasms Is patient prescribed a controlled substance at d/c from ED?: No Referrals: Leon Barker MD [Primary Care Provider] - 1-2 days Time of Disposition: 17:49
== END 2022-04-14 18:00 | disposition home or self-care (01) ==
LOC: EC 13:35
DX: S39.012A Strain of muscle, fascia and tendon of lower back, initial encounter (principal); J45.909 Unspecified asthma, uncomplicated; Z91.048 Other nonmedicinal substance allergy status; Z79.899 Other long term (current) drug therapy; W00.0XXA Fall on same level due to ice and snow, initial encounter
CPT/HCPCS: 72100; 99284; 96372 ×2; J2360; J1885

== ENCOUNTER → 2022-05-16 | Outpatient (CLI) | payer OTHER ==
--- NOTE | 2022-05-17 05:52 | MR ---
EXAMINATION TYPE: MR shoulder RT wo con DATE OF EXAM: 05/16/2022 COMPARISON: None HISTORY: Rt shoulder/arm pain Multiplanar multiecho imaging of the right shoulder performed without contrast. There is shoulder joint effusion. There is 2 cm area of increased fluid signal in the greater tuberos ity of the humerus. This is consistent with nondisplaced chip fracture. The subscapularis tendon is i ntact. The biceps tendon is intact. There is some narrowing of the glenohumeral joint space. The juana oid maria l appear intact. There is multiple areas of increased signal in the supraspinatus tendon near the attachment on the greater tuberosity. There is no retraction. The infraspinatus tendon appears i ntact. IMPRESSION: There is evidence of a large nondisplaced chip fracture of the greater tuberosity of the humerus. The re is small areas of full thickness tear of the supraspinatus tendon. No retraction. Shoulder joint e ffusion and subdeltoid effusion.
== END | disposition home or self-care (01) ==
LOC: RADMRIMAIN 09:10
PROVIDERS: ATTEND Nurse Practitioner Family
DX: S42.254A Nondisplaced fracture of greater tuberosity of right humerus, initial encounter for closed fracture (principal); M75.111 Incomplete rotator cuff tear or rupture of right shoulder, not specified as traumatic; M25.411 Effusion, right shoulder; X58.XXXA Exposure to other specified factors, initial encounter

== ENCOUNTER → 2023-10-18 | Outpatient (CLI) | payer OTHER ==
--- NOTE | 2023-10-20 18:32 | MM ---
Reason for Exam: Screening (asymptomatic). Last mammogram was performed 3 year(s) and 0 month(s) ago. Patient History: Menarche at age 16. Patient has no children. Perimenopausal. Risk Values: Kiesha 5 year model risk: 1.1%. NCI Lifetime model risk: 8.8%. Prior Study Comparison: 06/13/2018 Bilateral Screening Mammogram, [facility]. 07/10/2019 Bilateral Screening Mammogram, [facility]. 10/20/2020 Bilateral Screening Mammogram, [facility]. Tissue Density: The breasts are heterogeneously dense, which may obscure small masses. Findings: Analyzed By CAD. The pattern is symmetrical. No significant interval change. No suspicious groups of microcalcifications, spiculated or lobular masses, architectural distortion or other secondary signs of malignancy are mammographically apparent. Overall Assessment: Benign, BI-RAD 2 Management: Screening Mammogram of both breasts in 1 year. A negative mammogram report should not preclude additional follow up of suspicious palpable abnormalities. Patient should continue monthly self breast exam. A clinical breast exam by your physician is recommended on an annual basis and results should be correlated with mammographic findings. Note on Kiesha scores and lifetime risk: 1. A Kiesha score greater than 3% is considered moderate risk. If this is the case, consider specialist referral to assess eligibility for a risk reducing agent. 2. If overall lifetime risk for the development of breast cancer is 20% or higher, the patient may qualify for future screening with alternating mammogram and breast MRI. Electronically signed and approved by: Wander Felix D.O. Radiologis
== END | disposition home or self-care (01) ==
LOC: RADMAMWWP 16:11
PROVIDERS: ATTEND Internal Medicine
DX: Z12.31 Encounter for screening mammogram for malignant neoplasm of breast (principal)
CPT/HCPCS: 77067